=== PATIENT | female | born 1940 | race Caucasian/White ===

== ENCOUNTER → 2017-05-08 | Outpatient (REF) | payer MEDICARE | LOC: M LAB REF 13:39 | PROVIDERS: ATTEND Ophthalmology | DX: D23.12 Other benign neoplasm of skin of left eyelid, including canthus (principal) ==

== ENCOUNTER → 2018-04-01 | Outpatient (CLI) | payer MEDICARE ==
[2018-04-01 10:45] LABS: HEMATOCRIT 42.2 % (36.0-47.0); HEMOGLOBIN 14.4 g/dl (12.0-15.5); MEAN CORPUSCULAR HEMOGLOBIN 29.9 pg (27.0-33.0); MEAN CORPUSCULAR HGB CONC 34.1 g/dl (32.0-36.5); MEAN CORPUSCULAR VOLUME 87.6 fl (80.0-96.0); PLATELET COUNT, AUTOMATED 228 10^3/uL (150-450); RED BLOOD COUNT 4.82 10^6/uL (4.00-5.40); RED CELL DISTRIBUTION WIDTH 13.5 % (11.5-14.5); WHITE BLOOD COUNT 5.9 10^3/uL (4.0-10.0)
[2018-04-01 10:59] LABS: INR 0.95; PROTHROMBIN TIME 12.7 SECONDS (12.4-14.5)
[2018-04-01 11:08] LABS: ALBUMIN 3.7 GM/DL (3.2-5.2); ALBUMIN/GLOBULIN RATIO 1.09 (1.00-1.93); ALKALINE PHOSPHATASE 87 U/L (45-117); ALT/SGPT 29 U/L (12-78); ANION GAP 8 MEQ/L (8-16); AST/SGOT 26 U/L (7-37); BILIRUBIN,TOTAL 0.4 MG/DL (0.2-1.0); BLOOD UREA NITROGEN 17 MG/DL (7-18); CALCIUM LEVEL 8.9 MG/DL (8.8-10.2); CARBON DIOXIDE LEVEL 31 MEQ/L (21-32); CHLORIDE LEVEL 106 MEQ/L (98-107); CREATININE FOR GFR 0.79 MG/DL (0.55-1.30); GLOMERULAR FILTRATION RATE > 60.0 (>39); GLUCOSE, FASTING 85 MG/DL (70-100); POTASSIUM SERUM 4.3 MEQ/L (3.5-5.1); SODIUM LEVEL 145 MEQ/L (136-145); TOTAL PROTEIN 7.1 GM/DL (6.4-8.2)
[2018-04-01 11:56] LABS: ERYTHROCYTE SEDIMENTATION RATE 7 mm/hr (0-30)
== END ==
LOC: M ADMPAT 09:19
DX: Z01.818 Encounter for other preprocedural examination (principal); M17.12 Unilateral primary osteoarthritis, left knee; I10 Essential (primary) hypertension; E78.00 Pure hypercholesterolemia, unspecified; K21.9 Gastro-esophageal reflux disease without esophagitis
CPT/HCPCS: 71046

== ENCOUNTER 2018-04-20 06:55 | Inpatient (IN) | payer MEDICARE ==
[2018-04-20] MEDS: LR 1,000 ML IV ×4 (07:52→23:30)
[2018-04-20] MEDS: ACETAMINOPHEN 500 MG TAB PO (07:53)
[2018-04-20] MEDS ORDERED: MIDAZOLAM INJ 2 MG/2 ML VIAL (J2250) As Ordered (08:02)
[2018-04-20] MEDS ORDERED: fentaNYL 100 MCG/2 ML INJECTION (J3010) As Ordered (08:02)
[2018-04-20] MEDS: MIDAZOLAM INJ 2 MG/2 ML VIAL (J2250) IV (08:17)
[2018-04-20] MEDS: fentaNYL 100 MCG/2 ML INJECTION (J3010) IV (08:17)
[2018-04-20] MEDS ORDERED: ONDANSETRON 4MG/2ML VIAL (J2405) As Ordered (09:06)
[2018-04-20] MEDS ORDERED: PROPOFOL 200 MG/20 ML VIAL As Ordered (09:06)
[2018-04-20] MEDS ORDERED: dexameTHASONE 4 MG/ML 1ML VIAL (J1100) As Ordered (09:06)
[2018-04-20] MEDS ORDERED: METOCLOPRAMIDE INJ 10MG/2ML VIAL (J2765) As Ordered (09:06)
[2018-04-20] MEDS ORDERED: BUPIVACAINE/DEXTROSE 0.75% 2 ML AMP As Ordered (09:06)
[2018-04-20] MEDS ORDERED: ePHEDrine SULFATE 25 MG/5 ML(5MG/ML) SYRINGE As Ordered (09:15)
[2018-04-20] MEDS ORDERED: EPINEPHrine INJ 1 MG/ML 1ML AMP (09:40)
[2018-04-20] MEDS ORDERED: dexameTHASONE 10 MG/1 ML VIAL PRES.FREE (J1100) (09:40)
[2018-04-20] MEDS ORDERED: ROPIvacaine 0.5% 30 ML INJECTION (J2795 PER 1MG) (09:40)
[2018-04-20] MEDS: ceFAZolin 1GM INJ (J0690 PER 500MG) As Ordered (09:42)
[2018-04-20] MEDS: BUPIVACAINE HCL 0.25% 10 ML VIAL As Ordered (10:05)
[2018-04-20] MEDS: BUPIVACAINE LIPOSOME/PF 1.3% 20 ML VIAL (13.3MG/ML)(EXPAREL) As Ordered (10:05)
[2018-04-20] MEDS: TRANEXAMIC ACID 100 MG/ML 10ML VIAL As Ordered (10:12)
[2018-04-20] MEDS: EPINEPHrine INJ 1 MG/ML 1ML AMP As Ordered (10:12)
[2018-04-20] MEDS ORDERED: MORPHINE 1MG/ML IN 0.9% NACL 100ML IV BAG As Ordered (10:32)
[2018-04-20] MEDS ORDERED: ONDANSETRON 4MG/2ML VIAL (J2405) IV ×2 (11:00→11:15)
[2018-04-20] MEDS ORDERED: fentaNYL 100 MCG/2 ML INJECTION (J3010) IV (11:00)
[2018-04-20] MEDS ORDERED: NALBUPHINE HCL 10 MG/ML AMP (J2300) IV (11:15)
[2018-04-20] MEDS ORDERED: diphenhydrAMINE INJ 50MG/ML VIAL (J1200) IV (11:15)
[2018-04-20] MEDS ORDERED: EPIDURAL/PCA KEYS XX (11:15)
[2018-04-20] MEDS ORDERED: MORPHINE 1MG/ML IN 0.9% NACL 100ML IV BAG IV (11:15)
[2018-04-20] MEDS ORDERED: NALOXONE INJ 0.4 MG/1 ML VIAL (J2310) IV (11:15)
[2018-04-20] MEDS ORDERED: ACETAMINOPHEN TAB 650MG DOSE (2X325MG) PO (15:45)
[2018-04-20] MEDS ORDERED: FLEET ENEMA PR (15:45)
[2018-04-20] MEDS: PRAVASTATIN 20 MG TAB PO (21:55)
[2018-04-21 07:13] LABS: HEMATOCRIT 33.9 % (36.0-47.0); HEMOGLOBIN 11.3 g/dl (12.0-15.5); MEAN CORPUSCULAR HEMOGLOBIN 30.4 pg (27.0-33.0); MEAN CORPUSCULAR HGB CONC 33.3 g/dl (32.0-36.5); MEAN CORPUSCULAR VOLUME 91.1 fl (80.0-96.0); PLATELET COUNT, AUTOMATED 176 10^3/uL (150-450); RED BLOOD COUNT 3.72 10^6/uL (4.00-5.40); RED CELL DISTRIBUTION WIDTH 13.5 % (11.5-14.5); WHITE BLOOD COUNT 8.3 10^3/uL (4.0-10.0)
[2018-04-21 07:26] LABS: ANION GAP 4 MEQ/L (8-16); BLOOD UREA NITROGEN 17 MG/DL (7-18); CALCIUM LEVEL 8.1 MG/DL (8.8-10.2); CARBON DIOXIDE LEVEL 32 MEQ/L (21-32); CHLORIDE LEVEL 107 MEQ/L (98-107); CREATININE FOR GFR 0.63 MG/DL (0.55-1.30); GLOMERULAR FILTRATION RATE > 60.0 (>39); GLUCOSE, FASTING 124 MG/DL (70-100); POTASSIUM SERUM 3.7 MEQ/L (3.5-5.1); SODIUM LEVEL 143 MEQ/L (136-145)
[2018-04-21] MEDS: MULTIVITAMINS/MINERALS THERAP 1 TAB PO (09:07)
[2018-04-21] MEDS: MOM 30ML SUSPENSION UDC PO (09:07)
[2018-04-21] MEDS: SERTRALINE HCL 25 MG TABLET PO (09:07)
[2018-04-21] MEDS: FAMOTIDINE 20 MG TAB PO (09:07)
[2018-04-21] MEDS: OMEPRAZOLE 20 MG CAP PO (09:07)
[2018-04-21] MEDS: MIRALAX *UNIT DOSE* 17GM PACKET PO (09:07)
[2018-04-21] MEDS: LACTOBACILLUS ACIDOPHILUS CAP (BACID) PO (09:08)
[2018-04-21] MEDS: SENOKOT S TAB PO ×2 (09:08→19:55)
[2018-04-21] MEDS: VITAMIN D (CHOLECALCIFEROL) 400 INTERNATIONAL UNITS TAB PO (09:08)
[2018-04-21] MEDS: PERCOCET 5MG/325MG TAB PO ×4 (09:09→23:00)
[2018-04-21] MEDS: ENALAPRIL MALEATE 5 MG TAB PO (11:21)
[2018-04-21] MEDS: OYSTER SHELL CALCIUM 500 MG TAB PO (11:21)
[2018-04-21] MEDS: ONDANSETRON 4 MG TAB (S0181) PO (14:23)
[2018-04-21] MEDS: RIVAROXABAN 10 MG TAB (XARELTO) PO (17:32)
[2018-04-21] MEDS: PRAVASTATIN 20 MG TAB PO (19:55)
[2018-04-22] MEDS: PERCOCET 5MG/325MG TAB PO ×4 (05:43→22:30)
[2018-04-22 07:34] LABS: HEMATOCRIT 33.9 % (36.0-47.0); HEMOGLOBIN 11.3 g/dl (12.0-15.5); MEAN CORPUSCULAR HEMOGLOBIN 29.5 pg (27.0-33.0); MEAN CORPUSCULAR HGB CONC 33.3 g/dl (32.0-36.5); MEAN CORPUSCULAR VOLUME 88.5 fl (80.0-96.0); PLATELET COUNT, AUTOMATED 176 10^3/uL (150-450); RED BLOOD COUNT 3.83 10^6/uL (4.00-5.40); RED CELL DISTRIBUTION WIDTH 13.8 % (11.5-14.5); WHITE BLOOD COUNT 8.4 10^3/uL (4.0-10.0)
[2018-04-22 07:58] LABS: ANION GAP 4 MEQ/L (8-16); BLOOD UREA NITROGEN 14 MG/DL (7-18); CALCIUM LEVEL 8.3 MG/DL (8.8-10.2); CARBON DIOXIDE LEVEL 31 MEQ/L (21-32); CHLORIDE LEVEL 107 MEQ/L (98-107); CREATININE FOR GFR 0.55 MG/DL (0.55-1.30); GLOMERULAR FILTRATION RATE > 60.0 (>39); GLUCOSE, FASTING 107 MG/DL (70-100); MAGNESIUM LEVEL 2.2 MG/DL (1.8-2.4); POTASSIUM SERUM 3.5 MEQ/L (3.5-5.1); SODIUM LEVEL 142 MEQ/L (136-145)
[2018-04-22] MEDS: FAMOTIDINE 20 MG TAB PO (08:49)
[2018-04-22] MEDS: VITAMIN D (CHOLECALCIFEROL) 400 INTERNATIONAL UNITS TAB PO (08:49)
[2018-04-22] MEDS: MULTIVITAMINS/MINERALS THERAP 1 TAB PO (08:49)
[2018-04-22] MEDS: LACTOBACILLUS ACIDOPHILUS CAP (BACID) PO (08:49)
[2018-04-22] MEDS: OYSTER SHELL CALCIUM 500 MG TAB PO (08:50)
[2018-04-22] MEDS: OMEPRAZOLE 20 MG CAP PO (08:50)
[2018-04-22] MEDS: SENOKOT S TAB PO ×2 (08:50→20:28)
[2018-04-22] MEDS: ENALAPRIL MALEATE 5 MG TAB PO (08:50)
[2018-04-22] MEDS: SERTRALINE HCL 25 MG TABLET PO (08:50)
[2018-04-22] MEDS: MIRALAX *UNIT DOSE* 17GM PACKET PO (09:00)
[2018-04-22] MEDS: MOM 30ML SUSPENSION UDC PO (09:00)
[2018-04-22] MEDS: RIVAROXABAN 10 MG TAB (XARELTO) PO (17:57)
[2018-04-22] MEDS: PRAVASTATIN 20 MG TAB PO (20:28)
[2018-04-23] MEDS: PERCOCET 5MG/325MG TAB PO ×3 (03:53→14:00)
[2018-04-23 06:38] LABS: HEMATOCRIT 32.4 % (36.0-47.0); HEMOGLOBIN 11.1 g/dl (12.0-15.5); MEAN CORPUSCULAR HEMOGLOBIN 30.3 pg (27.0-33.0); MEAN CORPUSCULAR HGB CONC 34.3 g/dl (32.0-36.5); MEAN CORPUSCULAR VOLUME 88.5 fl (80.0-96.0); PLATELET COUNT, AUTOMATED 185 10^3/uL (150-450); RED BLOOD COUNT 3.66 10^6/uL (4.00-5.40); RED CELL DISTRIBUTION WIDTH 13.6 % (11.5-14.5); WHITE BLOOD COUNT 6.6 10^3/uL (4.0-10.0)
[2018-04-23 06:51] LABS: ANION GAP 6 MEQ/L (8-16); BLOOD UREA NITROGEN 17 MG/DL (7-18); CALCIUM LEVEL 7.8 MG/DL (8.8-10.2); CARBON DIOXIDE LEVEL 32 MEQ/L (21-32); CHLORIDE LEVEL 107 MEQ/L (98-107); CREATININE FOR GFR 0.57 MG/DL (0.55-1.30); GLOMERULAR FILTRATION RATE > 60.0 (>39); GLUCOSE, FASTING 111 MG/DL (70-100); POTASSIUM SERUM 3.6 MEQ/L (3.5-5.1); SODIUM LEVEL 145 MEQ/L (136-145)
[2018-04-23] MEDS: MIRALAX *UNIT DOSE* 17GM PACKET PO (09:00)
[2018-04-23] MEDS: MOM 30ML SUSPENSION UDC PO (09:08)
[2018-04-23] MEDS: MULTIVITAMINS/MINERALS THERAP 1 TAB PO (09:09)
[2018-04-23] MEDS: SENOKOT S TAB PO (09:09)
[2018-04-23] MEDS: ENALAPRIL MALEATE 5 MG TAB PO (09:09)
[2018-04-23] MEDS: SERTRALINE HCL 25 MG TABLET PO (09:09)
[2018-04-23] MEDS: OYSTER SHELL CALCIUM 500 MG TAB PO (09:09)
[2018-04-23] MEDS: OMEPRAZOLE 20 MG CAP PO (09:09)
[2018-04-23] MEDS: FAMOTIDINE 20 MG TAB PO (09:09)
[2018-04-23] MEDS: VITAMIN D (CHOLECALCIFEROL) 400 INTERNATIONAL UNITS TAB PO (09:10)
[2018-04-23] MEDS: LACTOBACILLUS ACIDOPHILUS CAP (BACID) PO (09:10)
== END 2018-04-23 14:35 | disposition home health service (06) | DRG 470 ==
LOC: M OR 06:55 → M MS5PR 12:24
PROVIDERS: Orthopaedic Surgery
PROC: 0SRD0J9 Replacement of Left Knee Joint with Synthetic Substitute, Cemented, Open Approach (ICD-10-PCS; principal; 2018-04-20 08:42)
DX: M17.12 Unilateral primary osteoarthritis, left knee (principal); I10 Essential (primary) hypertension; K21.9 Gastro-esophageal reflux disease without esophagitis; F32.9 Major depressive disorder, single episode, unspecified; E78.5 Hyperlipidemia, unspecified; Z79.899 Other long term (current) drug therapy; Z98.49 Cataract extraction status, unspecified eye

== ENCOUNTER 2020-06-04 13:22 | Day surgery (SDC) | payer MEDICARE ==
[~2020-06-04] VITALS: Ht 157.5 cm; Wt 75.7 kg
[~2020-06-04 13:22] MED LIST: CALC500T61 PO; CINN500C9 PO; CO Q10CA PO; CRAN400T3 PO; ENAL5TA PO; ESTE500T PO; FISH1000 PO; MIRA3350 PO; MULT1TAB10 PO; OMEP40CA97 PO; PERC5TAB12 PO; POTA99TA PO; PRAV40TA2 PO; PROBCAP4 PO; SERT25TA85 PO; TURM500C3 PO; VITA-110 PO; VITACAP8 PO; XARE10TA PO; ZANT150T40 PO
[2020-06-04] MEDS ORDERED: NS 1,000 ML IV ONE (14:00)
[2020-06-04] MEDS ORDERED: LOSA50TA88 PO (14:11)
[2020-06-04] MEDS ORDERED: PROTPAK PO (14:11)
[2020-06-04] MEDS ORDERED: fentaNYL 100 MCG/2 ML INJECTION (J3010) As Ordered ONE (14:40)
[2020-06-04] MEDS ORDERED: LIDOCAINE 2% 100MG/5ML SDV (FOR ANES.) As Ordered ONE (14:42)
[2020-06-04] MEDS ORDERED: propofoL 200 MG/20 ML VIAL As Ordered ONE (14:43)
[2020-06-04 15:40] VITALS: BP 187/80
--- NOTE | 2020-06-20 11:35 | ROOR ---
Patient Name: Sherri Benitez Procedure Date: 06/04/2020 11:43 AM Date of : 1940 Age: 79 Room: [facility] Gender: Female Note Status: Finalized Procedure: Upper GI endoscopy Indications: Heartburn Providers: Kingsley NASCIMENTO MD Referring MD: DARIEN SPAULDING MD Requesting Provider: Medicines: Monitored Anesthesia Care Complications: No immediate complications. Procedure: Pre-Anesthesia Assessment: - The heart rate, respiratory rate, oxygen saturations, blood pressure, adequacy of pulmonary ventilation, and response to care were monitored throughout the procedure. The Endoscope was introduced through the mouth, and advanced to the second part of duodenum. The upper GI endoscopy was accomplished without difficulty. The patient tolerated the procedure well. Findings: The Z-line was variable and was found at the gastroesophageal junction. This was biopsied with a cold forceps for histology. Small Hiatal Hernia. The entire examined stomach was normal. The examined duodenum was normal. Impression: - Z-line variable, at the gastroesophageal junction. Biopsied. - Small Hiatal Hernia. - Normal stomach. - Normal examined duodenum. Recommendation: - Observe patient's clinical course. - Continue present medications. Kingsley Nascimento MD Kingsley NASCIMENTO MD 06/04/2020 3:15:35 PM Number of Addenda: 0 Note Initiated On: 06/04/2020 11:43 AM Estimated Blood Loss: Estimated blood loss: none.
== END 2020-06-04 15:58 | disposition home or self-care (01) ==
LOC: M OPP 13:22
PROVIDERS: ATTEND Internal Medicine Gastroenterology
DX: K22.8 Other specified diseases of esophagus (principal); K44.9 Diaphragmatic hernia without obstruction or gangrene; K21.9 Gastro-esophageal reflux disease without esophagitis; R12 Heartburn; Z79.899 Other long term (current) drug therapy; Z91.048 Other nonmedicinal substance allergy status
CPT/HCPCS: 43239; 88305; J3010